=== PATIENT | female | born 1980 | race American Indian/Alaskan Native ===

== ENCOUNTER 2017-12-04 12:34 | Emergency (ER) | payer MEDICAID ==
[2017-12-04 12:45] VITALS: BP 156/92
--- NOTE | 2017-12-04 14:13 | Emergency Department Report ---
ED General Adult HPI - General Chief complaint: Medical Clearance Stated complaint: HEMORRHOID PAIN Source: patient Mode of arrival: Ambulatory Limitations: No Limitations - History of Present Illness Initial comments: This is a 37-year-old -Filipino female who presents with multiple complaints. Patient had vaginal delivery on 11/29/2017. Patient states she is now having complications from external hemorrhoids. She reports increased pain with walking and sitting, bleeding. Patient states she has taken ibuprofen 800 mg with no improvement of symptoms. She attempted to have a bowel movement over the past 2 days with complication. Patient states she is passing small hard balls. She also complains of pain on descent. She thought breast-feeding and requesting advice on how to have mild dry up. She denies nausea or vomiting , abdominal pain, back pain, frequency, urgency, dysuria, and fever. Onset/Timin -: days(s) Location: buttocks (rectum) Radiation: non-radiation Severity scale (0 -10): 10 Quality: aching Consistency: constant Improves with: none Worsens with: movement, other (sitting) Associated Symptoms: denies other symptoms Treatments Prior to Arrival: NSAID - Related Data Home Medications Medication Instructions Recorded Confirmed Last Taken Docusate Sodium [Colace CAP] 1 tab PO DAILY 11/28/17 11/28/17 11/28/17 Pnv No.95/Ferrous Fum/Folic AC 1 each PO DAILY 11/28/17 11/28/17 11/28/17 09:00 [Prenavite Tablet] 1 Ranitidine HCl [Zantac 150 MG TAB] 150 mg PO DAILY 11/28/17 11/28/17 11/28/17 09 :00 1 Valacyclovir HCl [Valtrex] 500 mg PO BID 11/28/17 11/28/17 11/28/17 Previous Rx's Medication Instructions Recorded Last Taken Type Docusate Sodium [Colace CAP] 100 mg PO DAILY PRN #20 capsule 12/04/17 Unknown Rx Hydrocortisone [Anusol-Hc] 30 gm RC BID #28 cream..g. 12/04/17 Unknown Rx Hydrocortisone/Pramoxine 10 gm RC TID #1 foam 12/04/17 Unknown Rx [Proctofoam-Hc Foam] Naproxen [Naprosyn] 500 mg PO TID PRN #12 tablet 12/04/17 Unknown Rx Polyethylene Glycol 3350 [Miralax 17 gm PO BID #14 packet 12/04/17 Unknown Rx 3350] Allergies Allergy/AdvReac Type Severity Reaction Status Date / Time No Known Allergies Allergy Verified 11/28/17 14:43 ED Review of Systems ROS: Stated complaint: HEMORRHOID PAIN Other details as noted in HPI Constitutional: denies: chills, fever Respiratory: denies: cough, shortness of breath, wheezing Cardiovascular: denies: chest pain, palpitations Gastrointestinal: constipation, other (hemorrhoids). denies: abdominal pain, nausea, diarrhea Genitourinary: denies: urgency, dysuria, discharge Skin: denies: rash, lesions Neurological: denies: headache, weakness, paresthesias Psychiatric: denies: anxiety, depression ED Past Medical Hx - Past Medical History Hx Hypertension: No (PIH) Hx Congestive Heart Failure: No Hx Diabetes: No Hx Deep Vein Thrombosis: No Hx Renal Disease: No Hx Sickle Cell Disease: No Hx Seizures: No Hx Asthma: No Hx COPD: No Hx HIV: No - Surgical History Past Surgical History?: No - Social History Smoking Status: Current Every Day Smoker Substance Use Type: None - Medications Home Medications: Home Medications Medication Instructions Recorded Confirmed Last Taken Type Docusate Sodium [Colace CAP] 1 tab PO DAILY 11/28/17 11/28/17 11/28/17 History Pnv No.95/Ferrous Fum/Folic AC 1 each PO DAILY 11/28/17 11/28/17 11/28/17 09:00 History [Prenavite Tablet] 1 Ranitidine HCl [Zantac 150 MG TAB] 150 mg PO DAILY 11/28/17 11/28/17 11/28/17 09 :00 History 1 Valacyclovir HCl [Valtrex] 500 mg PO BID 11/28/17 11/28/17 11/28/17 History Docusate Sodium [Colace CAP] 100 mg PO DAILY PRN #20 capsule 12/04/17 Unknown Rx Hydrocortisone [Anusol-Hc] 30 gm RC BID #28 cream..g. 12/04/17 Unknown Rx Hydrocortisone/Pramoxine 10 gm RC TID #1 foam 12/04/17 Unknown Rx [Proctofoam-Hc Foam] Naproxen [Naprosyn] 500 mg PO TID PRN #12 tablet 12/04/17 Unknown Rx Polyethylene Glycol 3350 [Miralax 17 gm PO BID #14 packet 12/04/17 Unknown Rx 3350] ED Physical Exam - General Limitations: No Limitations General appearance: alert, in no apparent distress - Respiratory Respiratory exam: Present: normal lung sounds bilaterally. Absent: respiratory distress - Cardiovascular Cardiovascular Exam: Present: regular rate, normal rhythm. Absent: systolic murmur, diastolic murmur, rubs, gallop - GI/Abdominal GI/Abdominal exam: Present: soft, normal bowel sounds. Absent: distended, tenderness, guarding, rebound, rigid, organomegaly, mass - Rectal Rectal exam: Present: hemorrhoids (external hemorrhoid, active bleeding) - Neurological Exam Neurological exam: Present: alert, oriented X3 - Psychiatric Psychiatric exam: Present: normal affect, normal mood - Skin Skin exam: Present: warm, dry, intact, normal color. Absent: rash ED Course Vital Signs 12/04/17 12:41 Temperature 98.1 F Pulse Rate 73 Respiratory 16 Rate Blood Pressure 156/92 O2 Sat by Pulse 100 Oximetry ED Medical Decision Making - Medical Decision Making Patient was examined by me. Vitals are normal and patient is in no acute distress. Physical findings of external hemorrhoids on exam. Start proctofoam, anusal, and naproxen for hemorrhoids. Start MiraLAX and docusate for constipation. Patient discharged home in stable condition. Follow up with PCP in 2-3 days. Critical care attestation.: If time is entered above; I have spent that time in minutes in the direct care of this critically ill patient, excluding procedure time. ED Disposition Clinical Impression: Acute hemorrhoid, Anal or rectal pain Constipation Qualifiers: Constipation type: slow transit constipation Qualified Code(s): K59.01 - Slow transit constipation Disposition: - TO HOME OR SELFCARE Is pt being admited?: No Does the pt Need Aspirin: No Condition: Stable Instructions: Constipation (ED), Hemorrhoids (ED), High Fiber Diet (ED) Additional Instructions: Increase fiber intake with foods and/or MiraLAX. Increase water intake and drink or eat prunes. Take colace daily to soften stool. Follow up with [facility] and primary care provider in 2-3 days. Prescriptions: Docusate Sodium [Colace CAP] 100 mg PO DAILY PRN #20 capsule PRN Reason: Constipation Hydrocortisone [Anusol-Hc] 30 gm RC BID #28 cream..g. Hydrocortisone/Pramoxine [Proctofoam-Hc Foam] 10 gm RC TID #1 foam Naproxen [Naprosyn] 500 mg PO TID PRN #12 tablet PRN Reason: Pain , Severe (7-10) Polyethylene Glycol 3350 [Miralax 3350] 17 gm PO BID #14 packet Referrals: [facility] [Provider Group] - 3-5 Days [facility] [Provider Group] - 3-5 Days [facility] [Outside] - 3-5 Days Time of Disposition: 14:23 Print Language: SPANISH
== END 2017-12-04 15:05 | disposition home or self-care (01) ==
LOC: ED 12:34
DX: K64.9 Unspecified hemorrhoids (principal); K59.01 Slow transit constipation; F17.200 Nicotine dependence, unspecified, uncomplicated
CPT/HCPCS: 99282

== ENCOUNTER 2020-07-15 18:38 | Outpatient (CLI) | payer MEDICAID ==
[2020-07-15] MEDS ORDERED: LACTATED RINGERS 500 ML IV ONE (20:04)
[2020-07-15 20:11] VITALS: BP 130/76
[2020-07-15] MEDS ORDERED: BENZOCAINE/MENTHOL 20/0.5% TOP SPRAY 56 GM TP PRN (20:44)
== END 2020-07-15 20:58 | disposition home or self-care (01) ==
LOC: TRG 18:38 → APU 20:05 → TRG 20:58
PROVIDERS: ATTEND Obstetrics & Gynecology
DX: O22.43 Hemorrhoids in pregnancy, third trimester (principal); Z3A.30 30 weeks gestation of pregnancy
CPT/HCPCS: 59025